=== PATIENT | female | born 1970 | race Caucasian/White ===

== ENCOUNTER → 2023-10-12 | Outpatient (CLI) | payer BC ==
--- NOTE | 2023-10-16 09:10 | CT ---
EXAMINATION TYPE: CT angio thor/abd DATE OF EXAM: 10/12/2023 INDICATION: History aneurysm COMPARISON: None CT DLP: 1122.80 mGycm CONTRAST: Performed without Oral Contrast and with IV Contrast, patient injected with 100 mL of Isovue 370. TECHNIQUE: Axial images at 5 mm thick sections. Reconstructed images in the coronal plane. Delayed images through the kidneys. FINDINGS: CT CHEST: Portion of the thyroid visualized is normal. No suspicious lung nodules or focal infiltrates are present. No enlarged mediastinal or hilar adenopathy is evident. The ascending aorta diameter at the level of the main pulmonary artery is 3.0 cm. The main pulmonary artery diameter at the bifurcation is 2.7 cm. There is a small hiatal hernia present. Thoracic aorta tapers throughout its visualized course. There is mild dilatation is evident. Following contrast, no dissection is identified. CT ABDOMEN: Liver: Normal Spleen: Normal Pancreas: Normal Adrenal glands: The adrenal glands are normal. Gallbladder: Normal Kidneys: No masses are evident. No hydronephrosis is present. No cysts are present. Aorta: Vascular calcification is within the aorta. No aneurysmal dilatation is evident. Aorta tapers normally through the abdomen to the bifurcation. Proximal iliac vessels within the [id number] are normal. Renal artery origins superior mesenteric artery and celiac axis origins appear normal. Inferior vena cava: Normal. IMPRESSION: 1. Thoracic and abdominal aorta appears normal without aneurysmal dilatation or dissection.
== END | disposition home or self-care (01) ==
LOC: RADCTMAIN 13:12
PROVIDERS: ATTEND Family Medicine
DX: I70.0 Atherosclerosis of aorta (principal); Z82.49 Family history of ischemic heart disease and other diseases of the circulatory system
CPT/HCPCS: 71275; 74175; Q9967